=== PATIENT | male | born 2000 | race Caucasian/White ===

== ENCOUNTER 2023-07-12 14:23 | Emergency (ER) | payer MEDICAID, SELFPAY ==
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
[2023-07-12 14:28] VITALS: BP 126/79; PULSE 97; RESP 18; TEMP 36.7; O2SAT 97; BMI 32.6
--- NOTE | 2023-07-12 14:30 | ECG_ITS ---
Test Reason : dizness Blood Pressure : / mmHG Vent. Rate : 088 BPM Atrial Rate : 088 BPM P-R Int : 136 ms QRS Dur : 084 ms QT Int : 352 ms P-R-T Axes : 061 006 041 degrees QTc Int : 425 ms Normal sinus rhythm Minimal voltage criteria for LVH, may be normal variant ( R in aVL ) Borderline ECG No previous ECGs available Referred By: Edna Guillaume Electronically Signed By:Sylvester Marley
[2023-07-12 15:17] LABS: MANUAL DIFF FLAG NO
[2023-07-12 15:22] LABS: Basophils Absolute Auto 0.1 X10*3/uL (0.0-0.2); Basophils Percent Auto 0.5 % (0-2); Eosinophils Percent Auto 8.2 % (0-4); Hemoglobin 14.4 g/dl (14.0-18.0); Imm Gran Abs Auto 0.04 X10*3/uL (0.00-0.03); Imm Gran Pct Auto 0.3 % (0.0-0.4); Lymphocytes Absolute Auto 2.1 X10*3/uL (1.2-4.9); Lymphocytes Percent Auto 16.6 % (20-40); Mean Corpuscular HGB Conc 33.5 g/dl (31.0-36.0); Mean Corpuscular Hemoglobin 28.1 pg (27.0-33.0); Mean Platelet Volume 10.4 fL (9.4-12.4); Monocytes Percent Auto 7.7 % (2-11); Neutrophils Absolute Auto 8.5 x10*3/uL (2.0-8.3); Neutrophils Percent Auto 66.7 % (45-73); Platelet Count 284 X10*3/uL (160-400); Red Blood Count 5.12 X10*6/uL (4.60-5.80); Red Cell Distribution Width 14.9 % (11.0-16.0); White Blood Count 12.8 X10*3/uL (4.8-10.8)
[2023-07-12 15:35] LABS: Alanine Aminotransferase 19 U/L (0-40); Albumin Level 4.8 g/dL (3.5-5.0); Alkaline Phosphatase 59 U/L (39-117); Anion Gap 15 (12-20); Aspartate Amino Transferase 20 U/L (5-37); Bilirubin Total 0.4 mg/dL (0.0-1.0); Blood Urea Nitrogen 17 mg/dL (9-16); Calcium 9.6 mg/dL (8.4-10.2); Carbon Dioxide 25 mmol/L (22-29); Chloride 104 mmol/L (96-108); Creatinine Clr Calc Pharmacy 186.7; Estimated Glomerular Filt Rate > 60; Glucose Random 83 mg/dL (60-115); Sodium 140 mmol/L (135-145); Total Protein 8.1 g/dL (6.5-8.0)
[2023-07-12 15:44] LABS: Troponin-I High Sensitivity < 2.7 ng/L (<3.5-35.0)
[2023-07-12 16:03] LABS: Influenza A PCR NEGATIVE (Negative); Influenza B PCR NEGATIVE (Negative); Resp Syncy Virus RNA Qual PCR NEGATIVE (Negative); SARS COV2 PCR INHOUSE NEGATIVE (Negative)
[2023-07-12 16:34] VITALS: BP 140/67; PULSE 79
[2023-07-12 16:35] VITALS: BP 139/78; BP 143/68; PULSE 80; PULSE 87
[2023-07-12 16:40] VITALS: BP 140/67; PULSE 79
[2023-07-12 16:41] VITALS: BP 139/78; BP 143/68; PULSE 80; PULSE 87
[2023-07-12 17:05] LABS: D Dimer High Sensitivity 193 NG/ML
[2023-07-12 17:38] VITALS: BP 138/78; PULSE 78; RESP 16; TEMP 37; O2SAT 98
== END 2023-07-12 17:39 | disposition home or self-care (01) ==
PROVIDERS: Nurse Practitioner Family; Registered Nurse Emergency; Emergency Provider Emergency Medicine
DX: R42 Dizziness and giddiness (principal); R94.31 Abnormal electrocardiogram [ECG] [EKG]; Z11.52 Encounter for screening for COVID-19; Z20.822 Contact with and (suspected) exposure to COVID-19; Z79.899 Other long term (current) drug therapy
CPT/HCPCS: 0241U; 36415; 80053; 84484; 85025; 85379; 93005; 99283; 99284

== ENCOUNTER → 2023-07-12 14:30 | Outpatient (BNV) | payer MEDICAID, SELFPAY | PROVIDERS: Emergency Provider Emergency Medicine; Visit Provider Internal Medicine Cardiovascular Disease | DX: R42 Dizziness and giddiness (principal) | CPT/HCPCS: 93010 ==

== ENCOUNTER 2023-07-15 11:28 | Emergency (ER) | payer OTHER, SELFPAY ==
--- NOTE | ~2023-07-15 | XR_ITS ---
EXAMINATION: XR HAND/WRIST, RIGHT CLINICAL INFORMATION: Right fifth finger pain. Question fracture, dislocation. COMPARISON: None TECHNIQUE: PA, oblique, lateral, and scaphoid views of the right hand and wrist. FINDINGS: The bones and soft tissues are normal. No fracture. Alignment is anatomic. Joint spaces are maintained. No erosions or soft tissue calcifications. XR/XR hand wrist RT IMPRESSION: Unremarkable examination.
[2023-07-15 11:36] VITALS: BP 114/77; BP 132/96; PULSE 104; PULSE 98; RESP 18; TEMP 36.6; O2SAT 95; O2SAT 98; BMI 33.1
--- NOTE | 2023-07-15 12:34 | ED_ITS ---
HPI - General Adult General Chief complaint: Extremity Problem Stated complaint: R HAND PAIN/SWELLING S/P INJURY @ WORK PER EMS Time Seen by Provider: 07/15/23 12:17 Source: patient Mode of arrival: ambulatory Limitations: no limitations History of Present Illness HPI narrative: 23-year-old male healthy presents to ED for right pinky pain. Patient states he was at work and back was followed with a grossly trying to catch it with his right hand in the bed bent his right pinky. Patient states not having right pinky pain on motion. Patient denies any other trauma. Related Data Previous Rx's ?Medication ?Instructions ?Recorded naproxen 500 mg tablet 500 mg PO BID PRN pain 7 days #14 07/15/23 tabs Allergies Allergy/AdvReac Type Severity Reaction Status Date / Time No Known Allergies Allergy Verified 07/15/23 11:38 Review of Systems 2 Review of Systems: Right hand pinky pain Yes all other systems are reviewed and are negative PMFSH Social History Social History Advance Directives: No Advance Directives Information Provided: Yes Do you have a plan to hurt others: No Plan Physical Exam ED Vital Signs: Vital Signs - 24 hr 07/15/23 11:36 07/15/23 15:14 Temperature 98 F 98.7 F Pulse Rate 104 H 88 Respiratory Rate 18 16 Blood Pressure 114/77 135/85 Pulse Oximetry 95 97 Oxygen Delivery Method Room Air Room Air BMI result Body Mass Index 33.1 Const General: cooperative, healthy appearing, comfortable, no acute distress, well developed, alert, awake and Physically active Orientation/consciousness: oriented to person, oriented to place, oriented to time and patient oriented x3 HENMT Head: Yes normal to inspection, Yes No palpable skull fracture present, Yes normocephalic and Yes atraumatic Eyes General: appearance normal, both eyes and all related structures Neck Neck: Yes normal visual inspection, Yes full ROM, Yes no lymphadenopathy, Yes no meningeal signs, Yes trachea midline, Yes supple, No anterior neck swelling and No tender Chest Chest palpation & inspection: normal inspection of the chest and normal palpation of entire chest wall Resp Effort & Inspection: normal respiratory effort and able to speak in complete sentences Auscultation: clear to auscultation bilaterally Cardio Jugular venous distension: no JVD Heart sounds: S1 normal heart sound present and S2 normal heart sound present GI Inspection: Yes normal to inspection Palpation (GI): Soft to palpation, not firm, nontender, no guarding and not rigid General: No CVA tenderness and Yes no CVA tenderness Back/Spine/Pelvis Back: no CVA tenderness, No CVA tenderness and No back tenderness Skin General skin exam: no rashes or lesions noted, elasticity normal and turgor normal Neuro General: oriented to person, oriented to place, oriented to time, patient oriented x3, gait normal, tone normal, moves all extremities, Normal light touch and pain sensation, no meningeal signs, no focal motor deficits, CN's II-XI intact bilaterally and normal sensation to monofilament Extrem General: Yes normal to inspection, Yes full ROM and Yes capillary refill normal Hand/finger images: 2 1. Tenderness on palpation. pain on range of motion. negative for redness, swelling, ecchymosis, crepitus, or deformity. Motor exam limited due to pain. Neurovascular exam intact. Capillary refill intact. Rest of extremity normal Psych Appearance: grossly normal, well kempt and not disheveled Course Course Course Narrative: n or Medications Administered Discontinued Medications Generic Name Dose Route Start Last Admin Trade Name Freq PRN Reason Stop Dose Admin Ibuprofen 800 mg 07/15/23 12:20 07/15/23 13:00 Ibuprofen 800 Mg Tablet PO 07/15/23 12:21 Not Given ONCE ONE Medical Decision Making Medical Decision Making [facility] Narrative: 23-year-old male presents to ED for rare 5th finger pain that occurred at work. Patient was trying to catch his bag which Bentyl finger back. [facility] be [facility]. 2:54pm: X-rays negative for fracture. Patient placed in a finger splint informed to follow-up with orthopedic and primary care provider. Patient informed possible tendon injury. Patient explained worrisome signs informed to return to ED immediately if he has themi Differential Diagnosis Differential Diagnoses: The differential diagnosis associated with the presentation includes ( fracture, dislocation, sprain) Admission/Observation Consideration of admission/observation: Escalation of care including admission/observation considered Independent Interpretation I performed an independent interpretation of an: Plain X-Ray Radiology Impression Discussion of test interpretation with radiology: I have reviewed the radiologist's reading. Independent Historian Clinical information obtained from an independent historian. History obtained from or confirmed by: Other ( patient) External Record Review External record reviewed: Other ( prior visit) Discharge Plan Discharge Clinical Impression: Finger sprain Patient Disposition: Home, Self-Care Instructions: Finger Sprain (ED) Additional Instructions: recommend follow-up with [facility]opedic surgeon. Return to the ED immediately For swelling, redness, bluish black discoloration, fever, chills, numbness/tingling, or any other concerning symptoms. FINDINGS: The bones and soft tissues are normal. No fracture. Alignment is anatomic. Joint spaces are maintained. No erosions or soft tissue calcifications. XR/XR hand wrist RT IMPRESSION: Unremarkable examination. Prescriptions: New naproxen 500 mg tablet 500 mg PO BID PRN (Reason: pain) 7 Days Qty: 14 0RF [place] [facility] [place] [facility] [place]] (Right finger sprain. may need MRI) [facility] [Outside] (Right finger sprain. may need MRI) Stand Alone Forms: Work/School Release Interventions: ED Discharge Assessment Last Done: 07/15/23 15:14 Discharge Date/Time: 07/15/23 15:15 Print Language: Slovenian
[2023-07-15 15:14] VITALS: BP 135/85; PULSE 88; RESP 16; TEMP 37.1; O2SAT 97
== END 2023-07-15 15:15 | disposition home or self-care (01) ==
PROVIDERS: Emergency Provider Emergency Medicine
DX: S63.616A Unspecified sprain of right little finger, initial encounter (principal); M25.531 Pain in right wrist; X58.XXXA Exposure to other specified factors, initial encounter; Y93.9 Activity, unspecified; Y92.9 Unspecified place or not applicable; Y99.8 Other external cause status
CPT/HCPCS: 73110; 73130; 99282; 99283